=== PATIENT | female | born 1980 | race Caucasian/White ===

== ENCOUNTER 2025-01-29 07:24 | Emergency (ER) | payer OTHER, BC ==
[~2025-01-29] VITALS: Ht 172.7 cm; Wt 103.6 kg
[2025-01-29] MEDS ORDERED: GLIPIZIDE10 MG PO (07:50)
[2025-01-29] MEDS ORDERED: ARIPIPRAZOLE5 MG PO (07:50)
[2025-01-29] MEDS ORDERED: TOPROL XL100 MG PO (07:51)
[2025-01-29] MEDS ORDERED: DESVENLAFAXINE100 M3 PO (07:51)
[2025-01-29] MEDS ORDERED: MIDODRINE HCL5 MG PO (07:53)
[2025-01-29] MEDS ORDERED: diphenhydrAMINE HCL 25 MG CAP PO ONE (08:15)
[2025-01-29 08:59] VITALS: BP 106/76
--- NOTE | 2025-01-29 21:34 | EKG ---
[facility] [address] [facility] [place] [id number] Signed Sinus tachycardia Prolonged QT Abnormal ECG No previous ECGs available Confirmed by Isha Trujillo MD () on 01/29/2025 9:33:47 PM Electronically Signed By: ISHA TRUJILLO MD 01/29/252133 PATIENT NAME: RUSSELL LAWS Electrocardiogram DATE OF : 82 PHYSICIAN: ISHA TRUJILLO MD REPORT #: [id number] REPORT IS CONFIDENTIAL AND NOT TO BE RELEASED WITHOUT AUTHORIZATION
== END 2025-01-29 08:58 | disposition home or self-care (01) ==
LOC: ED 07:24
DX: S09.90XA Unspecified injury of head, initial encounter (principal); Z88.5 Allergy status to narcotic agent; Z88.8 Allergy status to other drugs, medicaments and biological substances; Z88.9 Allergy status to unspecified drugs, medicaments and biological substances; Z88.0 Allergy status to penicillin; V49.9XXA Car occupant (driver) (passenger) injured in unspecified traffic accident, initial encounter
CPT/HCPCS: 70450; 93005; 93010; 99284-25